=== PATIENT | male | born 1975 | race Caucasian/White ===

== ENCOUNTER → 2023-05-17 | Outpatient (CLI) | payer BC ==
--- NOTE | 2023-05-17 12:19 | P.SLEEP ---
History of Present Illness DATE: 05/17/2023 CONSULTATION/NEW PATIENT EVALUATION HISTORY OF PRESENT ILLNESS/SLEEP-WAKE EVALUATION: 47-year-old gentleman had been evaluated in the sleep center for possible obstructive sleep apnea hypopnea syndrome. Patient has history of obstructive sleep apnea diagnosed about 25 years ago in another institution, and that time she was started on treatment with CPAP, but stopped treatment in a couple years. SLEEP SCHEDULE: Usually sleep schedule from 10 PM to 4:30 AM 7 days a week. FALLING ASLEEP: No problems with falling asleep. DURING SLEEP: Patient has loud snoring and witnessed episodes of stop breathing during the sleep. Patient wakes up from sleep 3 times with one episode of nocturia. No history of hypnogogical hallucinations, sleep paralysis, or cataplexy. DURING THE DAY/WAKE STATE: In the morning patient wake up tired.. Marion sleepiness scale is extremely high range of 15. Usually patient doesn't take naps. PAST MEDICAL HISTORY: Mostly negative. PAST SURGICAL HISTORY: Hernia repair in transportation manager. MEDICATIONS: None. SOCIAL HISTORY: Negative for smoking, alcohol consumption occasional. FAMILY HISTORY: Hypertension, diabetes, thyroid problems. REVIEW OF SYSTEMS: Loud snoring, multiple awakenings from sleep, sleepiness during the day. No fevers. No double vision. No recent chest pain. No shortness of breath. No abdominal pain. No bleeding episodes. No blood in urine. No seizure episodes. PHYSICAL EXAMINATION: GENERAL: A pleasant patient without any distress. VITAL SIGNS: BP 136/80, HR 85, RR 16, weight 237.2 pounds, height 5 foot 8.5 inches, body mass index 35.5. HEENT: PERRLA, EOMI. Evaluation of oropharynx showed tongue protrudes midline, low position of soft palate Mallampati 23. NECK: Supple. No JVD. Thyroid is not palpable. 18-1/3 inches in circumference. LUNGS: Clear to percussion and to auscultation. Good air exchange. No wheezing or rhonchi. HEART: S1, S2 regular. No murmurs, gallops or rubs. ABDOMEN: Soft and nontender. Bowel sounds are present. No organomegaly appreciated. EXTREMITIES: No clubbing or cyanosis. CUPOLA HOIST OPERATOR: Awake, alert, and oriented x3. Cranial nerves 2 to 7 intact. There is no fasciculation or atrophy noted. No focal deficits observed. ASSESSMENT: 1. Loud snoring, witnessed episodes of stop breathing during the sleep, multiple awakenings from sleep, history of obstructive sleep apnea in the past, wide neck, significant excessive daytime sleepiness with Marion Sleepiness Scale 15. Obstructive sleep apnea-hypopnea syndrome. 2. Obesity, BMI 35.5. 3. Status post hernia repair in transportation manager. PLAN: 1. Home sleep apnea test for evaluation of patient's breathing during sleep. 2. Following plan after reading sleep study. 3. Preferable position during sleep on the side. 4. No driving if patient feels any sleepiness. Patient is aware of civil and criminal liability for unsafe driving. 5. Sleep hygiene with regular sleep time for at least 7.5-8 hours. 6. Watching and losing weight. Thank you very much for referring this patient for consultation. Sincerely, Ezra Mcdaniel MD, PhD, FAASM. Diplomat of [place] [employer], Sleep Medicine Board by [place] [employer] [place] [employer] Wafer Substrate Tester of [facility] [place] Sleep Note - Sleep Note Sleep Note: Temperature: Pulse Rate: Respiratory Rate: Blood Pressure: SpO2: Height: Weight: BMI: Neck Circumference:
== END ==
LOC: 3 N SLEEP 11:39
PROVIDERS: ATTEND Internal Medicine
DX: G47.33 Obstructive sleep apnea (adult) (pediatric) (principal); G47.10 Hypersomnia, unspecified; E66.9 Obesity, unspecified; Z68.35 Body mass index [BMI] 35.0-35.9, adult; Z98.890 Other specified postprocedural states
CPT/HCPCS: 99211

== ENCOUNTER → 2023-05-29 | Outpatient (CLI) | payer BC ==
--- NOTE | 2023-05-31 17:57 | P.PCN ---
Description of Procedure: CLINICAL: A home sleep apnea test has been done for confirmation of possible obstructive sleep apnea-hypopnea syndrome. DESCRIPTION OF PROCEDURE: RESULTS: Recording time was 8 hours 29 minutes. Evaluation time was 8 hours 05 minutes. Evaluation time is sufficient for making conclusion about results of the test. Raw data of sleep recording has been reviewed and is adequate. Respiratory channel showed 188 apneas and 97 hypopneas. Apnea-hypopnea index was 35.2 per hour. Pulse rate in the range between minimum 45, maximum 116, average 61 by computer calculation. Lowest desaturation was 79%. IMPRESSION: 1. Severe Obstructive Sleep Apnea Hypopnea Syndrome. Please see other impressions from consultation. PLAN: 1. The patient should have PAP titration for correction of respiratory abnormallities during sleep. 2. No driving if feeling any sleepiness. 3. Watching weight. 4. Sleep hygiene with regular time in bed for at least 8 hours. Thank you very much for allowing me to participate in the management of your patient. Sincerely, Ezra Mcdaniel MD, PhD, FAASM Diplomat of [employer] Sleep Medicine Board of [employer] Dairy Worker of [facility] [place]
== END ==
LOC: 3 N SLEEP 13:01
PROVIDERS: ATTEND Internal Medicine
DX: G47.33 Obstructive sleep apnea (adult) (pediatric) (principal)

== ENCOUNTER 2023-07-11 19:54 | Outpatient (CLI) | payer BC ==
--- NOTE | 2023-07-12 10:53 | P.PCN ---
Description of Procedure: CLINICAL: Titration with positive air pressure has been done for correction of respiratory abnormalities during sleep. DESCRIPTION OF PROCEDURE: The standard montage for clinical polysomnography included the electroencephalogram, the electrocardiogram, the mentalis surface electromyography and Lead II cardiography. The respiratory battery consisted of measurements of nasal /buccal air flow, pressure transducer measurements from the nose, thoracic and /or abdominal effort and intercostal surface electromyography. Video monitoring has been done to check for any parasomnia events. Nocturnal oxyhemoglobin saturations were obtained by finger oximetry. Step-del cid titration with positive airway pressure was utilized to control respiratory events. Raw data of sleep recording has been reviewed and is adequate. RESULTS: Sleep efficiency was practically normal 87.7%. Latency to sleep onset was slightly prolonged to 30.5 minutes.]. Sleep architecture showed stage N1 was normal 5.4%, Delta sleep was normal 6.8%, REM sleep was borderline 19.0%. Heart rate was minimum 56 BPM, maximum 68 BPM, average 61 BPM. EMG showed 3.6 periodic limb movements per hour with 0.7 micriarousals per hour. PAP titration have been done with CPAP up to the pressure 7 cm H2O. The best results were at the pressure 7 cm H2O. Apnea hypopnea index reduced to 1.4. IMPRESSION: 1. Obstructive sleep apnea hypopnea syndrome on controle with PAP treatment. 2. No significant periodic limb movements have been documented. Please see other impressions from consultation. PLAN: 1. The patient will have treatment with positive air pressure equipment with the level of pressure 5-8 cm H2O and should use it every night for the whole night. 2. Watching and losing weight. 3. Sleep hygiene with regular time in bed for at least 8 hours. 4. No driving if feeling any sleepiness. 5. I will see the patient for follow up visit to explain the results of the test, recommendations, check compliance with treatment and make any necessary adjustment related to mask fitting, pressure and humidification. Thank you very much for allowing me to participate in the management of your patient. Sincerely, Ezra Mcdaniel MD, PhD, FAASM Diplomat of [employer] Sleep Medicine Board of [employer] Iron Worker of [facility] [place]
== END 2023-07-12 05:30 | disposition home or self-care (01) ==
LOC: 3 N SLEEP 19:54
PROVIDERS: ATTEND Internal Medicine
DX: G47.33 Obstructive sleep apnea (adult) (pediatric) (principal)
CPT/HCPCS: 95811

== ENCOUNTER → 2024-02-21 | Outpatient (CLI) | payer BC ==
[2024-02-21 11:38] VITALS: BP 114/75; PULSE 82; RESP 16; TEMP 98.4
--- NOTE | 2024-02-21 12:17 | P.PROGSL ---
Subjective DATE: 02/21/2024 FOLLOW UP VISIT. Patient with obstructive sleep apnea hypopnea syndrome return to sleep center for follow-up visit. Recently patient had sleep study which documented obstructive sleep apnea hypopnea syndrome. Patient was initiated on PAP therapy and today is first visit after treatment was started. Patient was able to use PAP but not every night. Patient has difficulties related to the mask, irritation of the skin related to the mask material. [place] Sleepiness Scale is 10, which is borderline I checked information from PAP unit. PAP unit pressure 5-8, average 5.4 cm H2O. Usage is 50% and about 30% for more then 4 hours, average 4.2 hours per night. Leak is increased to 55 l/m. Apnea Hypopnea Index is 3.6, which is normal. MEDICATIONS: Please see below During physical exam: GENERAL: A pleasant patient without any distress. VITAL SIGNS: Please see below, weight 210 pounds. HEENT: PERRLA, EOMI.low position of soft palate, Mallapati 3. NECK: Supple. No JVD. LUNGS: Clear to percussion and to auscultation. Good air exchange. No wheezing or rhonchi. HEART: S1, S2 regular. ABDOMEN: Soft and nontender.[] EXTREMITIES: No clubbing or cyanosis. LIFT MANAGER: Awake, alert, and oriented x3. No focal deficit. Impressions: 1. Severe obstructive sleep apnea-hypopnea syndrome, apnea hypopnea index 35.2. Patient has low compliance with treatment secondary to mask problems. 2. Mild obesity, BMI 30.5, patient lost 27 pounds since previous visit. 3. Status post hernia repair. Plan: 1. Continue using PAP equipment every night for the whole night. We will extend trial period for another 90 days. Patient promised to follow recommendations. Patient will try to use linen under the full facemask to prevent any irritation. 2. To change air filter at least 1-2 times per month. 3. PAP unit should stay lower then position of the head. 4. Advised patient to remove all remaining water from humidifier canister daily and make it dry after each usage. Refill canister with fresh distilled water before each usage. 5. Sleep hygiene with regular time in bed for at least 8 hours. 6. Precautions related to driving. No driving if feel any sleepiness. 7. I will maintain prescription for PAP supplies including mask, tube, filters. 8. Follow up visit in 2 months or earlier if patient has any problems. 9. Watching weight. Thank you very much for allowing me to participate in the management of your patient. Ezra Mcdaniel MD, PhD, FAASM. Diplomat of [place] [employer], Sleep Medicine Board by [place] [employer] Network Professional of [facility] [place] Objective - Vital Signs Vital Signs: Vital Signs Temp 98.4 F 02/21/24 11:37 Pulse 82 02/21/24 11:37 Resp 16 02/21/24 11:37 BP 114/75 02/21/24 11:37 Pulse Ox 98 02/21/24 11:37 FiO2 Intake & Output 02/20/24 02/21/24 02/21/24 18:59 06:59 18:59 Weight 95.254 kg
== END ==
LOC: 3 N SLEEP 11:29
PROVIDERS: ATTEND Internal Medicine
DX: G47.33 Obstructive sleep apnea (adult) (pediatric) (principal); E66.9 Obesity, unspecified; Z98.890 Other specified postprocedural states; Z68.30 Body mass index [BMI] 30.0-30.9, adult; Z99.89 Dependence on other enabling machines and devices
CPT/HCPCS: 99212